=== PATIENT | male | born 1990 | race Caucasian/White ===

== ENCOUNTER → 2022-05-13 14:24 | Outpatient (BNVA) | payer BC, SELFPAY | PROVIDERS: PCP Family Medicine; Visit Provider Psychiatry & Neurology Psychiatry | DX: F32.9 Major depressive disorder, single episode, unspecified (principal); R45.86 Emotional lability; F10.21 Alcohol dependence, in remission; Z87.820 Personal history of traumatic brain injury; F42.9 Obsessive-compulsive disorder, unspecified | CPT/HCPCS: 80053; 80061; 83036; 84443; 85025 ==

== ENCOUNTER → 2023-07-31 15:17 | Outpatient (BNVA) | payer BC, SELFPAY | PROVIDERS: PCP Family Medicine; Visit Provider Psychiatry & Neurology Psychiatry | DX: Z79.899 Other long term (current) drug therapy (principal) | CPT/HCPCS: 80053; 80061; 83036; 84443; 85025 ==

== ENCOUNTER 2023-12-15 14:28 | Emergency (ER) | payer BC, MEDICAID, SELFPAY ==
[2023-12-15 14:29] VITALS: TEMP 36.7; BMI 26.6
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
[2023-12-15 14:36] VITALS: BP 121/83; PULSE 108; RESP 16; TEMP 36.7; O2SAT 96
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
[2023-12-15] MEDS: tetanus-dipt-pertussis 0.5 mL SDV IM (14:58)
[2023-12-15] MEDS: LORazepam 2 mg/mL INJ 1 mL 0.5 MG IVP (14:58)
[2023-12-15 15:32] VITALS: BP 121/83; PULSE 108; RESP 16; TEMP 36.7; O2SAT 96
== END 2023-12-15 15:33 | disposition home or self-care (01) ==
PROVIDERS: Emergency Provider Emergency Medicine; PCP Family Medicine
DX: F10.10 Alcohol abuse, uncomplicated (principal); S80.812A Abrasion, left lower leg, initial encounter; S80.811A Abrasion, right lower leg, initial encounter; F17.210 Nicotine dependence, cigarettes, uncomplicated; F17.220 Nicotine dependence, chewing tobacco, uncomplicated; X58.XXXA Exposure to other specified factors, initial encounter; Z23 Encounter for immunization
CPT/HCPCS: 71045; 90471; 90715; 96374; 99284; J2060